=== PATIENT | male | born 1985 | race Caucasian/White ===

== ENCOUNTER 2018-01-05 18:02 | Emergency (ER) | payer MEDICAID ==
[~2018-01-05] VITALS: Ht 185.4 cm; Wt 107.0 kg
[~2018-01-05 18:02] MED LIST: ANTI10DR6 EACH EAR; BLEOS OP; CLIN300C85 PO; CLOT15CR5 TP; CYCL-1 PO; FLOOS OT; IBUP-1051 PO; IBUP-1984 PO; IBUP-1986 PO; NAPR-56 PO; NO HOME; PENI500T2 PO; PHEN-873 PO; PRED20TA PO; PSEU-259 PO
[2018-01-05 18:08] VITALS: BP 142/87
[2018-01-05] MEDS ORDERED: cephalexin 250mg capsule PO ONE (18:35)
[2018-01-05] MEDS ORDERED: DOXY100C43 PO (18:35)
[2018-01-05] MEDS ORDERED: sulfamethoxazole/trimethoprim DS (800/160mg) tablet PO ONE (18:35)
== END 2018-01-05 18:59 | disposition home or self-care (01) ==
LOC: ER 18:03
DX: L02.416 Cutaneous abscess of left lower limb (principal); K59.00 Constipation, unspecified; F17.210 Nicotine dependence, cigarettes, uncomplicated; Z56.0 Unemployment, unspecified; Z72.89 Other problems related to lifestyle; Z88.8 Allergy status to other drugs, medicaments and biological substances; Z98.890 Other specified postprocedural states; Z88.0 Allergy status to penicillin; Z88.1 Allergy status to other antibiotic agents; Z88.6 Allergy status to analgesic agent
CPT/HCPCS: 99283

== ENCOUNTER 2018-01-14 11:21 | Emergency (ER) | payer MEDICAID ==
[~2018-01-14] VITALS: Ht 185.4 cm; Wt 111.7 kg
[~2018-01-14 11:21] MED LIST changes: +DOXY100C43 PO; +PHEN-786 PO; -PHEN-873 PO
[2018-01-14 11:30] VITALS: BP 119/71
[2018-01-14] MEDS ORDERED: NICO-630 TOP (12:08)
== END 2018-01-14 12:18 | disposition home or self-care (01) ==
LOC: ER 11:21
DX: F17.200 Nicotine dependence, unspecified, uncomplicated (principal); Z00.8 Encounter for other general examination; L08.9 Local infection of the skin and subcutaneous tissue, unspecified; Z86.14 Personal history of Methicillin resistant Staphylococcus aureus infection; Z98.890 Other specified postprocedural states; Z79.899 Other long term (current) drug therapy; Z56.0 Unemployment, unspecified
CPT/HCPCS: 99282

== ENCOUNTER 2018-03-05 19:37 | Emergency (ER) | payer MEDICAID ==
[~2018-03-05] VITALS: Ht 185.4 cm; Wt 113.6 kg
[~2018-03-05 19:37] MED LIST changes: -DOXY100C43 PO
[2018-03-05 20:09] VITALS: BP 124/72
[2018-03-05] MEDS ORDERED: acetaminophen 325mg tablet PO ONE (20:15)
[2018-03-05] MEDS ORDERED: ibuprofen tablet 400 MG TABLET PO ONE (22:05)
[2018-03-05] MEDS ORDERED: penicillin G benzathine 1.2 million unit/2ml syringe IM ONE (22:05)
== END 2018-03-05 22:40 | disposition home or self-care (01) ==
LOC: ER 19:37
DX: J02.0 Streptococcal pharyngitis (principal); Z56.0 Unemployment, unspecified; Z98.890 Other specified postprocedural states; Z86.14 Personal history of Methicillin resistant Staphylococcus aureus infection; Z79.899 Other long term (current) drug therapy
CPT/HCPCS: 87880; 96372; 99283; J0561; 99284

== ENCOUNTER 2018-12-23 08:56 | Emergency (ER) | payer MEDICAID ==
[~2018-12-23] VITALS: Ht 185.4 cm; Wt 118.2 kg
[~2018-12-23 08:56] MED LIST changes: +CLIN-96 PO; -CLIN300C85 PO
[2018-12-23 09:17] VITALS: BP 121/80
[2018-12-23] MEDS ORDERED: AMOX-422 PO (09:24)
== END 2018-12-23 09:41 | disposition home or self-care (01) ==
LOC: ER 08:57
DX: J02.0 Streptococcal pharyngitis (principal); B95.5 Unspecified streptococcus as the cause of diseases classified elsewhere; Z86.14 Personal history of Methicillin resistant Staphylococcus aureus infection; Z98.890 Other specified postprocedural states; Z56.0 Unemployment, unspecified; Z79.899 Other long term (current) drug therapy
CPT/HCPCS: 99283

== ENCOUNTER 2019-03-03 10:07 | Emergency (ER) | payer MEDICAID ==
[~2019-03-03] VITALS: Ht 185.4 cm; Wt 112.7 kg
[2019-03-03 11:34] VITALS: BP 147/118
== END 2019-03-03 11:36 | disposition home or self-care (01) ==
LOC: ER 10:08
DX: F11.10 Opioid abuse, uncomplicated (principal); F15.10 Other stimulant abuse, uncomplicated; Z86.14 Personal history of Methicillin resistant Staphylococcus aureus infection; Z98.890 Other specified postprocedural states; Z56.0 Unemployment, unspecified; Z79.899 Other long term (current) drug therapy
CPT/HCPCS: 99281

== ENCOUNTER 2019-08-14 21:11 | Emergency (ER) | payer MEDICAID ==
[~2019-08-14] VITALS: Ht 185.4 cm; Wt 127.3 kg
[~2019-08-14 21:11] MED LIST changes: -CLIN-96 PO; +CLIN-97 PO
[2019-08-14 21:12] VITALS: BP 137/89
[2019-08-14] MEDS ORDERED: BENZ-16 PO (21:29)
== END 2019-08-14 21:39 | disposition home or self-care (01) ==
LOC: ER 21:11
DX: J06.9 Acute upper respiratory infection, unspecified (principal); F15.90 Other stimulant use, unspecified, uncomplicated; F11.90 Opioid use, unspecified, uncomplicated; Z86.14 Personal history of Methicillin resistant Staphylococcus aureus infection; Z98.890 Other specified postprocedural states; Z56.0 Unemployment, unspecified; Z79.899 Other long term (current) drug therapy
CPT/HCPCS: 99283

== ENCOUNTER 2019-09-04 17:04 | Emergency (ER) | payer MEDICAID ==
[~2019-09-04] VITALS: Ht 185.4 cm; Wt 121.0 kg
[2019-09-04 17:11] VITALS: BP 129/85
[2019-09-04] MEDS ORDERED: CEPH250T PO (17:54)
== END 2019-09-04 18:02 | disposition home or self-care (01) ==
LOC: ER 17:05
DX: H04.302 Unspecified dacryocystitis of left lacrimal passage (principal); F15.90 Other stimulant use, unspecified, uncomplicated; F11.90 Opioid use, unspecified, uncomplicated; Z56.0 Unemployment, unspecified; Z79.2 Long term (current) use of antibiotics; Z79.899 Other long term (current) drug therapy; Z86.14 Personal history of Methicillin resistant Staphylococcus aureus infection; Z72.89 Other problems related to lifestyle
CPT/HCPCS: 99283

== ENCOUNTER 2020-05-16 16:14 | Emergency (ER) | payer MEDICAID ==
[~2020-05-16] VITALS: Ht 185.4 cm; Wt 122.7 kg
[~2020-05-16 16:14] MED LIST changes: +CEPH250T PO; +CLOT15CR35 TP; -CLOT15CR5 TP
== END 2020-05-16 18:09 | disposition home or self-care (01) ==
LOC: ER 18:04
DX: J06.9 Acute upper respiratory infection, unspecified (principal); R05 Cough; R50.9 Fever, unspecified; Z20.828 Contact with and (suspected) exposure to other viral communicable diseases; F15.90 Other stimulant use, unspecified, uncomplicated; F11.90 Opioid use, unspecified, uncomplicated; Z86.14 Personal history of Methicillin resistant Staphylococcus aureus infection; Z98.890 Other specified postprocedural states; Z72.89 Other problems related to lifestyle; Z56.0 Unemployment, unspecified; Z79.2 Long term (current) use of antibiotics; Z88.0 Allergy status to penicillin; Z88.8 Allergy status to other drugs, medicaments and biological substances
CPT/HCPCS: 36415; 87635; 99283

== ENCOUNTER 2021-03-09 15:11 | Emergency (ER) | payer MEDICAID ==
[~2021-03-09 15:11] MED LIST changes: -CEPH250T PO
== END 2021-03-09 17:49 | disposition left against medical advice (07) ==
LOC: ER 15:11
DX: H66.90 Otitis media, unspecified, unspecified ear (principal); Z53.21 Procedure and treatment not carried out due to patient leaving prior to being seen by health care provider

== ENCOUNTER 2021-04-22 22:28 | Emergency (ER) | payer MEDICAID ==
[~2021-04-22] VITALS: Ht 185.4 cm; Wt 77.3 kg
[2021-04-22] MEDS ORDERED: dexamethasone sod phosphate 10mg/ml inj IV STA (22:56)
[2021-04-22] MEDS ORDERED: ketorolac trometh. 30mg/ml inj. IV ONE (23:00)
[2021-04-22] MEDS ORDERED: normal saline 1000ML IV soln IVB ONE (23:00)
[2021-04-22] MEDS ORDERED: acetaminophen 325mg tablet PO ONE (23:00)
[2021-04-22] MEDS ORDERED: CefTRIAXone/D5W-Rocephin 1gm 50 ML IV ONE (23:00)
[2021-04-22] MEDS ORDERED: ONDA4TAB6 PO (23:21)
[2021-04-22] MEDS ORDERED: LIDO20SO16 PO (23:21)
[2021-04-22] MEDS ORDERED: NAPR-56 PO (23:21)
[2021-04-22] MEDS ORDERED: AZIT500T PO (23:21)
[2021-04-22] MEDS ORDERED: METH4TAB3 PO (23:21)
[2021-04-23 02:27] VITALS: BP 117/77
== END 2021-04-23 02:30 | disposition home or self-care (01) ==
LOC: ER 22:28
DX: J02.9 Acute pharyngitis, unspecified (principal); B34.9 Viral infection, unspecified; E86.0 Dehydration; F15.10 Other stimulant abuse, uncomplicated; F11.10 Opioid abuse, uncomplicated; Z56.0 Unemployment, unspecified; Z20.822 Contact with and (suspected) exposure to COVID-19
CPT/HCPCS: 87635; 96365; 96375; 99284; C9803; J0696; J1100; J1885; J7030

== ENCOUNTER 2021-07-13 11:19 | Emergency (ER) | payer MEDICAID ==
[~2021-07-13] VITALS: Ht 185.4 cm; Wt 85.9 kg
[~2021-07-13 11:19] MED LIST changes: +LIDO20SO16 PO; +METH4TAB3 PO; +ONDA4TAB6 PO
[2021-07-13] MEDS ORDERED: normal saline 1000ML IV soln IV ONE ×2 (11:40)
[2021-07-13 12:03] LABS: BASOPHILS % (AUTO) 0.2 % (0-1); EOSINOPHILS % (AUTO) 0 % (0-6); HEMATOCRIT 44.2 % (42.0-52.0); HEMOGLOBIN 14.2 g/dl (14.0-17.9); LYMPHOCYTES # (AUTO) 0.9 X10'3 (1.1-4.8); LYMPHOCYTES % (AUTO) 5.5 % (21-51); MEAN CORPUSCULAR HEMOGLOBIN 26.1 PG (27.0-31.0); MEAN CORPUSCULAR HGB CONC 32.1 g/dL (33.0-36.5); MEAN CORPUSCULAR VOLUME 81.3 FL (78-98); MEAN PLATELET VOLUME 7.7 FL (7.4-10.4); MONOCYTES # (AUTO) 1.2 X10'3 (0-0.9); MONOCYTES % (AUTO) 7.3 % (2-12); PLATELET COUNT 212 X10'3 (140-440); RED BLOOD COUNT 5.44 X10'6 (4.70-6.10); RED CELL DISTRIBUTION WIDTH 14.3 % (11.5-14.5); WHITE BLOOD COUNT 16.1 X10'3 (4.5-11.0)
[2021-07-13 12:31] LABS: ALANINE AMINOTRANSFERASE 23 U/L (12-78); ALBUMIN 3.5 G/DL (3.4-5.0); ALBUMIN/GLOBULIN RATIO 0.8 (1.1-1.5); ALKALINE PHOSPHATASE 100 IU/L (46-116); ANION GAP 9 (8-16); ASPARTATE AMINO TRANSFERASE 12 U/L (10-37); BILIRUBIN,TOTAL 0.4 MG/DL (0.1-1.0); BLOOD UREA NITROGEN 18 MG/DL (7-18); BUN/CREATININE RATIO 13.2 (5.4-32.0); CALCIUM 9.1 MG/DL (8.5-10.1); CHLORIDE 102 MMOL/L (99-107); CREATININE 1.36 MG/DL (0.60-1.10); GLUCOSE 145 MG/DL (70-104); MAGNESIUM 2.1 MG/DL (1.5-2.4); POTASSIUM 3.7 MMOL/L (3.5-5.1); SODIUM 137 MMOL/L (135-145); TOTAL CARBON DIOXIDE 26.1 MMOL/L (24-32); TOTAL PROTEIN 7.8 G/DL (6.4-8.2); eGFR 60 ML/MIN
[2021-07-13] MEDS ORDERED: penicillin V potassium 500mg tablet PO ONE (14:10)
[2021-07-13] MEDS ORDERED: PENI500T2 PO (14:15)
[2021-07-13] MEDS ORDERED: acetaminophen 325mg tablet PO ONE (14:25)
[2021-07-13 14:50] VITALS: BP 106/74
== END 2021-07-13 14:52 | disposition home or self-care (01) ==
LOC: ER 11:20
DX: J02.0 Streptococcal pharyngitis (principal); Z20.822 Contact with and (suspected) exposure to COVID-19; R13.10 Dysphagia, unspecified; R50.9 Fever, unspecified; R11.10 Vomiting, unspecified; F15.90 Other stimulant use, unspecified, uncomplicated; F11.90 Opioid use, unspecified, uncomplicated; Z86.14 Personal history of Methicillin resistant Staphylococcus aureus infection; Z98.890 Other specified postprocedural states; Z72.89 Other problems related to lifestyle; Z56.0 Unemployment, unspecified; Z79.2 Long term (current) use of antibiotics; Z79.899 Other long term (current) drug therapy
CPT/HCPCS: 36415; 71045; 80053; 83605; 83735; 84145; 85025; 87040; 87635; 87880; 96360; 96361; 99285; C9803; J7030

== ENCOUNTER 2021-12-12 12:13 | Emergency (ER) | payer MEDICAID ==
[~2021-12-12] VITALS: Ht 182.9 cm; Wt 100.0 kg
[2021-12-12 12:32] VITALS: BP 115/85
[2021-12-12] MEDS ORDERED: SULF1TAB49 PO (12:51)
== END 2021-12-12 13:03 | disposition home or self-care (01) ==
LOC: ER 12:13
DX: R22.32 Localized swelling, mass and lump, left upper limb (principal); F15.10 Other stimulant abuse, uncomplicated; F11.10 Opioid abuse, uncomplicated; Z86.14 Personal history of Methicillin resistant Staphylococcus aureus infection; Z56.0 Unemployment, unspecified; Z79.899 Other long term (current) drug therapy; Z79.1 Long term (current) use of non-steroidal anti-inflammatories (NSAID)
CPT/HCPCS: 99283

== ENCOUNTER 2023-04-24 02:18 | Emergency (ER) | payer MEDICAID ==
[~2023-04-24] VITALS: Ht 185.4 cm; Wt 109.0 kg
[2023-04-24 02:22] VITALS: BP 146/95; PULSE 126; RESP 24; TEMP 99.5; O2SAT 100
== END 2023-04-24 04:29 | disposition left against medical advice (07) ==
LOC: ER 02:19
DX: R51.9 Headache, unspecified (principal); Z53.21 Procedure and treatment not carried out due to patient leaving prior to being seen by health care provider
CPT/HCPCS: 99281

== ENCOUNTER 2023-06-29 09:58 | Emergency (ER) | payer MEDICAID ==
[~2023-06-29] VITALS: Ht 185.4 cm; Wt 99.9 kg
[2023-06-29 11:08] LABS: BASOPHILS # (AUTO) 0.1 X10'3 (0-0.2); EOSINOPHILS # (AUTO) 0.1 X10'3 (0-0.9); EOSINOPHILS % (AUTO) 1.9 % (0-6); HEMATOCRIT 40.9 % (42.0-52.0); HEMOGLOBIN 13.3 g/dl (14.0-17.9); LYMPHOCYTES # (AUTO) 1.5 X10'3 (1.1-4.8); LYMPHOCYTES % (AUTO) 27.6 % (21-51); MEAN CORPUSCULAR HEMOGLOBIN 25.9 PG (27.0-31.0); MEAN CORPUSCULAR HGB CONC 32.4 g/dL (33.0-36.5); MEAN CORPUSCULAR VOLUME 79.8 FL (78-98); MEAN PLATELET VOLUME 6.8 FL (7.4-10.4); MONOCYTES # (AUTO) 0.4 X10'3 (0-0.9); MONOCYTES % (AUTO) 6.8 % (2-12); NEUTROPHILS # (AUTO) 3.5 X10'3 (1.8-7.7); NEUTROPHILS % (AUTO) 62.7 % (42-75); PLATELET COUNT 238 X10'3 (140-440); RED BLOOD COUNT 5.13 X10'6 (4.70-6.10); RED CELL DISTRIBUTION WIDTH 14.5 % (11.5-14.5); WHITE BLOOD COUNT 5.5 X10'3 (4.5-11.0)
[2023-06-29 11:32] LABS: ALBUMIN 3.9 G/DL (3.4-5.0); ANION GAP 12 (8-16); BLOOD UREA NITROGEN 18 MG/DL (7-18); BUN/CREATININE RATIO 22.2 (10.0-20.0); CALCIUM 7.8 MG/DL (8.5-10.1); CHLORIDE 105 MMOL/L (99-107); CREATININE 0.81 MG/DL (0.60-1.10); ETHANOL < 10 MG/DL (<10); GLUCOSE 99 MG/DL (70-104); POTASSIUM 4.2 MMOL/L (3.5-5.1); SODIUM 142 MMOL/L (135-145); THYROID STIMULATING HORMONE 0.98 ulU/ml (0.34-4.50); TOTAL CARBON DIOXIDE 25.2 MMOL/L (24-32); eCRCL 142 ML/MIN; eGFR > 90 ML/MIN
[2023-06-29 12:05] LABS: URINE AMPHETAMINE SCREEN POSITIVE (Neg); URINE BARBITUATE SCREEN NEGATIVE (Neg); URINE BENZODIAZEPINES SCREEN NEGATIVE (Neg); URINE CANNABINOID SCREEN NEGATIVE (Neg); URINE COCAINE SCREEN NEGATIVE (Neg); URINE METHADONE SCREEN NEGATIVE (Neg); URINE OPIATE SCREEN NEGATIVE (Neg); URINE PHENCYCLIDINE SCREEN NEGATIVE (Neg)
[2023-06-29 12:31] LABS: BILIRUBIN,URINE NEGATIVE (Neg); CLARITY,URINE CLEAR (Clear); COLOR,URINE YELLOW (Yellow); GLUCOSE, URINE NEGATIVE (Neg); KETONES,URINE NEGATIVE (Neg); LEUKOCYTE ESTERASE ,URINE NEGATIVE (Neg); NITRITES, URINE NEGATIVE (Neg); OCCULT BLOOD,URINE NEGATIVE (Neg); PH,URINE 7.5 (4.8-8.0); PROTEIN,URINE NEGATIVE (Neg); UROBILINOGEN,URINE 0.2 E.U/dL (0.2-1.0)
[2023-06-29 12:36] LABS: UA COLLECTION TYPE CLN CATCH MIDSTREAM
[2023-06-29] MEDS ORDERED: LISI2.5T14 PO (13:19)
[2023-06-29] MEDS ORDERED: SPIR25TA5 PO (13:19)
[2023-06-29] MEDS ORDERED: CARV12.549 PO (13:19)
[2023-06-29] MEDS: carVEDilol 12.5mg tablet PO SCH (20:12)
[2023-06-30 06:09] VITALS: BP_DIAS 45; TEMP 96.8; O2SAT 97
[2023-06-30] MEDS: spironolactone 25 MG tablet PO SCH (08:45)
[2023-06-30 08:46] VITALS: BP_SYST 111; PULSE 63
[2023-06-30] MEDS: lisinopril 2.5mg tablet PO SCH (08:46)
[2023-06-30 09:42] VITALS: RESP 16
== END 2023-06-30 13:25 | disposition home or self-care (01) ==
LOC: ER 09:59
DX: F19.10 Other psychoactive substance abuse, uncomplicated (principal); Z20.822 Contact with and (suspected) exposure to COVID-19; F15.90 Other stimulant use, unspecified, uncomplicated; Z79.899 Other long term (current) drug therapy
CPT/HCPCS: 36415; 80048; 80305; 80320; 81003; 84443; 85025; 87811; 99284

== ENCOUNTER 2023-07-11 13:32 | Emergency (ER) | payer MEDICAID ==
[~2023-07-11] VITALS: Ht 180.3 cm; Wt 98.6 kg
[~2023-07-11 13:32] MED LIST changes: -ANTI10DR6 EACH EAR; -BLEOS OP; +CARV12.549 PO; -CLIN-97 PO; -CLOT15CR35 TP; -CYCL-1 PO; -FLOOS OT; -IBUP-1051 PO; -IBUP-1984 PO; -IBUP-1986 PO; -LIDO20SO16 PO; +LISI2.5T14 PO; -METH4TAB3 PO; -NAPR-56 PO; -NO HOME; -ONDA4TAB6 PO; -PENI500T2 PO; -PHEN-786 PO; -PRED20TA PO; -PSEU-259 PO; +SPIR25TA5 PO
[2023-07-11 13:37] VITALS: BP 125/93; PULSE 98; RESP 16; TEMP 98; O2SAT 100
== END 2023-07-11 19:18 | disposition left against medical advice (07) ==
LOC: ER 13:32
DX: R44.0 Auditory hallucinations (principal); Z53.21 Procedure and treatment not carried out due to patient leaving prior to being seen by health care provider
CPT/HCPCS: 99281

== ENCOUNTER 2023-08-02 00:32 | Emergency (ER) | payer MEDICAID ==
[~2023-08-02] VITALS: Ht 180.3 cm; Wt 104.7 kg
[2023-08-02 00:46] VITALS: BP 146/103; PULSE 94; RESP 16; TEMP 97.8; O2SAT 95
== END 2023-08-02 05:25 | disposition left against medical advice (07) ==
LOC: ER 00:33
DX: F29 Unspecified psychosis not due to a substance or known physiological condition (principal); Z53.21 Procedure and treatment not carried out due to patient leaving prior to being seen by health care provider
CPT/HCPCS: 99281

== ENCOUNTER 2023-08-20 04:01 | Emergency (ER) | payer MEDICAID | END 2023-08-20 05:13 | disposition left against medical advice (07) | LOC: ER 04:02 | DX: Z00.00 Encounter for general adult medical examination without abnormal findings (principal); Z53.21 Procedure and treatment not carried out due to patient leaving prior to being seen by health care provider | CPT/HCPCS: 99281 ==

== ENCOUNTER 2024-03-10 23:01 | Emergency (ER) | payer MEDICAID ==
[~2024-03-10] VITALS: Ht 185.4 cm; Wt 104.5 kg
[2024-03-11] MEDS: ondansetron/PF 4mg/2ml inj IV ONE (00:28)
[2024-03-11] MEDS: normal saline 1000ml 1,000 ML IV ONE (00:29)
[2024-03-11 01:35] VITALS: BP 140/92; PULSE 86; RESP 16; TEMP 98.6; O2SAT 99
== END 2024-03-11 01:37 | disposition home or self-care (01) ==
LOC: ER 23:01
DX: R11.2 Nausea with vomiting, unspecified (principal); F15.90 Other stimulant use, unspecified, uncomplicated; F11.90 Opioid use, unspecified, uncomplicated; Z79.899 Other long term (current) drug therapy; Z98.890 Other specified postprocedural states; Z56.0 Unemployment, unspecified
CPT/HCPCS: 96361; 96374; 99283; J2405; J7030

== ENCOUNTER 2024-04-09 18:57 | Emergency (ER) | payer MEDICAID ==
[~2024-04-09] VITALS: Ht 185.4 cm; Wt 104.3 kg
[2024-04-09 19:59] LABS: BASOPHILS # (AUTO) 0.1 X10'3 (0-0.2); BASOPHILS % (AUTO) 0.8 % (0-1); EOSINOPHILS # (AUTO) 0.2 X10'3 (0-0.9); EOSINOPHILS % (AUTO) 2.6 % (0-6); HEMATOCRIT 43.5 % (42.0-52.0); LYMPHOCYTES # (AUTO) 1.6 X10'3 (1.1-4.8); LYMPHOCYTES % (AUTO) 22.4 % (21-51); MEAN CORPUSCULAR HEMOGLOBIN 26.3 PG (27.0-31.0); MEAN CORPUSCULAR HGB CONC 32.3 g/dL (33.0-36.5); MEAN CORPUSCULAR VOLUME 81.5 FL (78-98); MEAN PLATELET VOLUME 6.8 FL (7.4-10.4); MONOCYTES # (AUTO) 0.5 X10'3 (0-0.9); NEUTROPHILS # (AUTO) 4.7 X10'3 (1.8-7.7); NEUTROPHILS % (AUTO) 67.2 % (42-75); PLATELET COUNT 280 X10'3 (140-440); RED BLOOD COUNT 5.33 X10'6 (4.70-6.10); RED CELL DISTRIBUTION WIDTH 14.1 % (11.5-14.5)
[2024-04-09 20:20] LABS: ALBUMIN 3.6 G/DL (3.4-5.0); ANION GAP 5 (8-16); BLOOD UREA NITROGEN 15 MG/DL (7-18); BUN/CREATININE RATIO 13.8 (10.0-20.0); CHLORIDE 101 MMOL/L (99-107); CREATININE 1.09 MG/DL (0.60-1.10); ETHANOL < 10 MG/DL (<10); GLUCOSE 111 MG/DL (70-104); POTASSIUM 4.1 MMOL/L (3.5-5.1); SALICYLATE 1.2 MG/DL (4.0-20.0); SODIUM 138 MMOL/L (135-145); TOTAL CARBON DIOXIDE 32.2 MMOL/L (24-32); eCRCL 105 ML/MIN; eGFR 76 ML/MIN
[2024-04-09] MEDS: ondansetron 4mg rapidly disintigrating tab PO ONE (20:29)
[2024-04-09] MEDS: mag hydrox/Alum hydrox/simeth 30ml oral suspension PO ONE (20:30)
[2024-04-09] MEDS: LIDOcaine 2% Viscous 15ml cup MM PRN (20:30)
[2024-04-09 20:40] LABS: ACETAMINOPHEN < 2.0 UG/ML (10-30)
[2024-04-09 21:23] LABS: BILIRUBIN,URINE NEGATIVE (Neg); CLARITY,URINE CLEAR (Clear); COLOR,URINE YELLOW (Yellow); GLUCOSE, URINE NEGATIVE (Neg); KETONES,URINE NEGATIVE (Neg); LEUKOCYTE ESTERASE ,URINE NEGATIVE (Neg); NITRITES, URINE NEGATIVE (Neg); OCCULT BLOOD,URINE NEGATIVE (Neg); PROTEIN,URINE NEGATIVE (Neg); UROBILINOGEN,URINE 0.2 E.U/dL (0.2-1.0)
[2024-04-09 21:28] LABS: UA COLLECTION TYPE CLN CATCH MIDSTREAM
[2024-04-09 21:44] LABS: URINE AMPHETAMINE SCREEN POSITIVE (Neg); URINE BARBITUATE SCREEN NEGATIVE (Neg); URINE BENZODIAZEPINES SCREEN NEGATIVE (Neg); URINE CANNABINOID SCREEN NEGATIVE (Neg); URINE COCAINE SCREEN NEGATIVE (Neg); URINE METHADONE SCREEN NEGATIVE (Neg); URINE OPIATE SCREEN NEGATIVE (Neg); URINE PHENCYCLIDINE SCREEN NEGATIVE (Neg)
[2024-04-10] MEDS: OLANZapine 2.5MG tablet PO ONE (03:00)
[2024-04-10] MEDS: temazepam 15mg capsule PO ONE (15:48)
[2024-04-10] MEDS: LORazepam 1 MG tablet PO ONE (19:33)
[2024-04-10] MEDS: haloperidol 5mg tablet PO ONE (19:34)
[2024-04-10] MEDS: diphenhydrAMINE 25mg capsule PO ONE (19:34)
[2024-04-11 11:23] VITALS: BP 119/84; PULSE 98; RESP 18; TEMP 98.1; O2SAT 98
== END 2024-04-11 11:35 | disposition home or self-care (01) ==
LOC: ER 18:57
DX: R10.13 Epigastric pain (principal); R11.10 Vomiting, unspecified; F22 Delusional disorders; F15.10 Other stimulant abuse, uncomplicated; Z88.8 Allergy status to other drugs, medicaments and biological substances; Z20.822 Contact with and (suspected) exposure to COVID-19
CPT/HCPCS: 36415; 80048; 80305; 80320; 80329; 81003; 85025; 87811; 99285; Q0163

== ENCOUNTER 2024-04-19 09:42 | Emergency (ER) | payer MEDICAID ==
[~2024-04-19] VITALS: Ht 182.9 cm; Wt 107.4 kg
[2024-04-19 09:50] VITALS: BP 116/72; PULSE 116; RESP 18; O2SAT 100
[2024-04-19 10:38] LABS: BILIRUBIN,URINE NEGATIVE (Neg); CLARITY,URINE CLEAR (Clear); COLOR,URINE YELLOW (Yellow); GLUCOSE, URINE NEGATIVE (Neg); KETONES,URINE TRACE mg/dl (Neg); LEUKOCYTE ESTERASE ,URINE NEGATIVE (Neg); NITRITES, URINE NEGATIVE (Neg); OCCULT BLOOD,URINE NEGATIVE (Neg); PROTEIN,URINE NEGATIVE (Neg); UROBILINOGEN,URINE 0.2 E.U/dL (0.2-1.0)
[2024-04-19 10:39] LABS: UA COLLECTION TYPE CLN CATCH MIDSTREAM
[2024-04-19 10:45] LABS: URINE AMPHETAMINE SCREEN POSITIVE (Neg); URINE BARBITUATE SCREEN NEGATIVE (Neg); URINE BENZODIAZEPINES SCREEN NEGATIVE (Neg); URINE CANNABINOID SCREEN NEGATIVE (Neg); URINE COCAINE SCREEN NEGATIVE (Neg); URINE METHADONE SCREEN NEGATIVE (Neg); URINE OPIATE SCREEN NEGATIVE (Neg); URINE PHENCYCLIDINE SCREEN NEGATIVE (Neg)
[2024-04-19 10:45] LABS: BASOPHILS % (AUTO) 0.7 % (0-1); EOSINOPHILS # (AUTO) 0.1 X10'3 (0-0.9); EOSINOPHILS % (AUTO) 1.3 % (0-6); HEMATOCRIT 43.5 % (42.0-52.0); HEMOGLOBIN 14.1 g/dl (14.0-17.9); LYMPHOCYTES # (AUTO) 1.3 X10'3 (1.1-4.8); LYMPHOCYTES % (AUTO) 20.4 % (21-51); MEAN CORPUSCULAR HEMOGLOBIN 26.3 PG (27.0-31.0); MEAN CORPUSCULAR HGB CONC 32.3 g/dL (33.0-36.5); MEAN CORPUSCULAR VOLUME 81.3 FL (78-98); MONOCYTES # (AUTO) 0.3 X10'3 (0-0.9); MONOCYTES % (AUTO) 5.2 % (2-12); NEUTROPHILS # (AUTO) 4.5 X10'3 (1.8-7.7); NEUTROPHILS % (AUTO) 72.4 % (42-75); PLATELET COUNT 290 X10'3 (140-440); RED BLOOD COUNT 5.35 X10'6 (4.70-6.10); WHITE BLOOD COUNT 6.2 X10'3 (4.5-11.0)
[2024-04-19 11:07] LABS: ALBUMIN 3.7 G/DL (3.4-5.0); ANION GAP 7 (8-16); BLOOD UREA NITROGEN 16 MG/DL (7-18); CALCIUM 9.3 MG/DL (8.5-10.1); CHLORIDE 104 MMOL/L (99-107); CREATININE 0.94 MG/DL (0.60-1.10); ETHANOL < 10 MG/DL (<10); GLUCOSE 117 MG/DL (70-104); POTASSIUM 4.2 MMOL/L (3.5-5.1); SODIUM 139 MMOL/L (135-145); THYROID STIMULATING HORMONE 0.81 ulU/ml (0.34-4.50); TOTAL CARBON DIOXIDE 27.7 MMOL/L (24-32); eCRCL 118 ML/MIN; eGFR 90 ML/MIN
[2024-04-19 13:11] VITALS: TEMP 98.7
[2024-04-21] MEDS ORDERED: OLAN10TA3 PO (13:26)
== END 2024-04-19 13:12 | disposition home or self-care (01) ==
LOC: ER 09:43
DX: R45.851 Suicidal ideations (principal); F20.9 Schizophrenia, unspecified; F29 Unspecified psychosis not due to a substance or known physiological condition; F15.90 Other stimulant use, unspecified, uncomplicated; Z79.899 Other long term (current) drug therapy; Z20.822 Contact with and (suspected) exposure to COVID-19
CPT/HCPCS: 36415; 80048; 80305; 80320; 81003; 84443; 85025; 87811; 99284

== ENCOUNTER 2024-07-17 11:03 | Emergency (ER) | payer MEDICAID ==
[~2024-07-17] VITALS: Ht 182.9 cm; Wt 104.0 kg
[~2024-07-17 11:03] MED LIST changes: +OLAN10TA3 PO
[2024-07-17 11:05] VITALS: BP 140/93; PULSE 97; TEMP 98.6; O2SAT 99
[2024-07-17] MEDS ORDERED: OLANZapine 2.5MG tablet PO SCH (11:15)
[2024-07-17] MEDS ORDERED: ondansetron 4mg rapidly disintigrating tab PO ONE (11:20)
[2024-07-17 11:37] LABS: BASOPHILS # (AUTO) 0.1 X10'3 (0-0.2); BASOPHILS % (AUTO) 1.1 % (0-1); EOSINOPHILS # (AUTO) 0.1 X10'3 (0-0.9); EOSINOPHILS % (AUTO) 1.2 % (0-6); HEMATOCRIT 42.6 % (42.0-52.0); HEMOGLOBIN 13.8 g/dl (14.0-17.9); LYMPHOCYTES # (AUTO) 1.5 X10'3 (1.1-4.8); LYMPHOCYTES % (AUTO) 21.5 % (21-51); MEAN CORPUSCULAR HEMOGLOBIN 26.2 PG (27.0-31.0); MEAN CORPUSCULAR HGB CONC 32.5 g/dL (33.0-36.5); MEAN CORPUSCULAR VOLUME 80.7 FL (78-98); MEAN PLATELET VOLUME 6.8 FL (7.4-10.4); MONOCYTES # (AUTO) 0.4 X10'3 (0-0.9); MONOCYTES % (AUTO) 5.7 % (2-12); NEUTROPHILS # (AUTO) 4.9 X10'3 (1.8-7.7); NEUTROPHILS % (AUTO) 70.5 % (42-75); PLATELET COUNT 242 X10'3 (140-440); RED BLOOD COUNT 5.28 X10'6 (4.70-6.10); RED CELL DISTRIBUTION WIDTH 13.8 % (11.5-14.5); WHITE BLOOD COUNT 6.9 X10'3 (4.5-11.0)
[2024-07-17] MEDS: ondansetron/PF 4mg/2ml inj IV ONE (11:39)
[2024-07-17] MEDS: LORazepam 2 mg/ml vial IV ONE (11:40)
[2024-07-17] MEDS: normal saline 1000ML IV soln IVB ONE (11:40)
[2024-07-17] MEDS: OLANZapine **IM** 10 mg inj. IM ONE (11:40)
[2024-07-17 11:48] LABS: ALBUMIN 3.8 G/DL (3.4-5.0); ANION GAP 5 (8-16); BLOOD UREA NITROGEN 22 MG/DL (7-18); BUN/CREATININE RATIO 24.7 (10.0-20.0); CALCIUM 9.1 MG/DL (8.5-10.1); CHLORIDE 102 MMOL/L (99-107); CREATININE 0.89 MG/DL (0.60-1.10); GLUCOSE 99 MG/DL (70-104); POTASSIUM 4.1 MMOL/L (3.5-5.1); SODIUM 140 MMOL/L (135-145); TOTAL CARBON DIOXIDE 32.8 MMOL/L (24-32); eCRCL 125 ML/MIN; eGFR > 90 ML/MIN
[2024-07-17 11:53] VITALS: RESP 16
[2024-07-17 11:56] LABS: ETHANOL < 10 MG/DL (<10)
[2024-07-17] MEDS ORDERED: PRAZ1CAP5 (11:59)
[2024-07-17] MEDS ORDERED: PALI6TAB6 (12:00)
[2024-07-17] MEDS ORDERED: RISP-31 PO (12:00)
[2024-07-17] MEDS ORDERED: HYDR-3686 PO (12:00)
[2024-07-17 12:07] LABS: BILIRUBIN,URINE NEGATIVE (Neg); CLARITY,URINE CLEAR (Clear); COLOR,URINE YELLOW (Yellow); GLUCOSE, URINE NEGATIVE (Neg); KETONES,URINE NEGATIVE (Neg); LEUKOCYTE ESTERASE ,URINE NEGATIVE (Neg); NITRITES, URINE NEGATIVE (Neg); OCCULT BLOOD,URINE NEGATIVE (Neg); PROTEIN,URINE NEGATIVE (Neg); UROBILINOGEN,URINE 0.2 E.U/dL (0.2-1.0)
[2024-07-17 12:10] LABS: UA COLLECTION TYPE NON-SPECIFIED
[2024-07-17 12:26] LABS: URINE AMPHETAMINE SCREEN POSITIVE (Neg); URINE BARBITUATE SCREEN NEGATIVE (Neg); URINE BENZODIAZEPINES SCREEN NEGATIVE (Neg); URINE CANNABINOID SCREEN NEGATIVE (Neg); URINE COCAINE SCREEN NEGATIVE (Neg); URINE METHADONE SCREEN NEGATIVE (Neg); URINE OPIATE SCREEN NEGATIVE (Neg); URINE PHENCYCLIDINE SCREEN NEGATIVE (Neg)
[2024-07-17 12:36] LABS: LIPASE 22 U/L (16-77)
[2024-07-17] MEDS ORDERED: ONDA-245 PO (12:57)
[2024-07-17] MEDS ORDERED: OLAN10TA40 PO (12:59)
== END 2024-07-17 13:36 | disposition home or self-care (01) ==
LOC: ER 11:04
DX: F20.9 Schizophrenia, unspecified (principal); K52.9 Noninfective gastroenteritis and colitis, unspecified; F15.90 Other stimulant use, unspecified, uncomplicated; F11.90 Opioid use, unspecified, uncomplicated; Z98.890 Other specified postprocedural states; Z56.0 Unemployment, unspecified; Z20.822 Contact with and (suspected) exposure to COVID-19; Z79.899 Other long term (current) drug therapy
CPT/HCPCS: 36415; 80048; 80305; 80320; 81003; 83690; 85025; 87811; 96361; 96374; 96375; 99284; J2060; J2405; J7030

== ENCOUNTER 2024-08-04 14:07 | Emergency (ER) | payer MEDICAID ==
[~2024-08-04] VITALS: Ht 185.4 cm; Wt 111.2 kg
[~2024-08-04 14:07] MED LIST changes: -CARV12.549 PO; +HYDR-3686 PO; -LISI2.5T14 PO; -OLAN10TA3 PO; +OLAN10TA40 PO; +ONDA-245 PO; +PALI6TAB6; +PRAZ1CAP5; +RISP-31 PO; -SPIR25TA5 PO
[2024-08-04 14:44] LABS: BASOPHILS # (AUTO) 0.1 X10'3 (0-0.2); EOSINOPHILS # (AUTO) 0.1 X10'3 (0-0.9); HEMATOCRIT 46.8 % (42.0-52.0); HEMOGLOBIN 14.9 g/dl (14.0-17.9); LYMPHOCYTES # (AUTO) 1.9 X10'3 (1.1-4.8); LYMPHOCYTES % (AUTO) 25.5 % (21-51); MEAN CORPUSCULAR HEMOGLOBIN 25.8 PG (27.0-31.0); MEAN CORPUSCULAR HGB CONC 31.8 g/dL (33.0-36.5); MEAN CORPUSCULAR VOLUME 81.1 FL (78-98); MEAN PLATELET VOLUME 6.9 FL (7.4-10.4); MONOCYTES # (AUTO) 0.5 X10'3 (0-0.9); MONOCYTES % (AUTO) 6.4 % (2-12); NEUTROPHILS # (AUTO) 4.7 X10'3 (1.8-7.7); NEUTROPHILS % (AUTO) 65.1 % (42-75); PLATELET COUNT 305 X10'3 (140-440); RED BLOOD COUNT 5.77 X10'6 (4.70-6.10); WHITE BLOOD COUNT 7.3 X10'3 (4.5-11.0)
[2024-08-04 15:06] LABS: ALANINE AMINOTRANSFERASE 25 U/L (12-78); ALBUMIN 3.9 G/DL (3.4-5.0); ALBUMIN/GLOBULIN RATIO 0.9 (1.1-1.5); ALKALINE PHOSPHATASE 119 IU/L (46-116); ANION GAP 9 (8-16); ASPARTATE AMINO TRANSFERASE 12 U/L (10-37); BILIRUBIN,TOTAL 0.6 MG/DL (0.1-1.0); BLOOD UREA NITROGEN 21 MG/DL (7-18); BUN/CREATININE RATIO 21.4 (10.0-20.0); CALCIUM 9.1 MG/DL (8.5-10.1); CHLORIDE 106 MMOL/L (99-107); CREATININE 0.98 MG/DL (0.60-1.10); GLUCOSE 75 MG/DL (70-104); POTASSIUM 3.8 MMOL/L (3.5-5.1); PRO BRAIN NATRIURETIC PEPTIDE 180 PG/ML (0-125); SODIUM 143 MMOL/L (135-145); TOTAL PROTEIN 8.2 G/DL (6.4-8.2); eCRCL 117 ML/MIN; eGFR 86 ML/MIN
[2024-08-04 17:06] LABS: BILIRUBIN,URINE NEGATIVE (Neg); CLARITY,URINE CLEAR (Clear); COLOR,URINE YELLOW (Yellow); GLUCOSE, URINE NEGATIVE (Neg); KETONES,URINE NEGATIVE (Neg); LEUKOCYTE ESTERASE ,URINE NEGATIVE (Neg); NITRITES, URINE NEGATIVE (Neg); OCCULT BLOOD,URINE NEGATIVE (Neg); PROTEIN,URINE NEGATIVE (Neg); UROBILINOGEN,URINE 0.2 E.U/dL (0.2-1.0)
[2024-08-04 17:08] LABS: UA COLLECTION TYPE VOIDED
[2024-08-04 17:15] LABS: URINE AMPHETAMINE SCREEN POSITIVE (Neg); URINE BARBITUATE SCREEN NEGATIVE (Neg); URINE BENZODIAZEPINES SCREEN NEGATIVE (Neg); URINE CANNABINOID SCREEN NEGATIVE (Neg); URINE COCAINE SCREEN NEGATIVE (Neg); URINE METHADONE SCREEN NEGATIVE (Neg); URINE OPIATE SCREEN NEGATIVE (Neg); URINE PHENCYCLIDINE SCREEN NEGATIVE (Neg)
[2024-08-04 18:13] VITALS: BP 111/78; PULSE 97; RESP 15; TEMP 98.4; O2SAT 96
== END 2024-08-04 18:19 | disposition home or self-care (01) ==
LOC: ER 14:08
DX: R07.9 Chest pain, unspecified (principal); R00.2 Palpitations; F15.10 Other stimulant abuse, uncomplicated; F17.200 Nicotine dependence, unspecified, uncomplicated
CPT/HCPCS: 36415; 71045; 80053; 80305; 81003; 83880; 84484; 85025; 93005; 99285

== ENCOUNTER 2025-02-13 22:49 | Emergency (ER) | payer MEDICAID ==
[~2025-02-13] VITALS: Ht 182.9 cm; Wt 103.8 kg
[~2025-02-13 22:49] MED LIST changes: +OLAN-38 PO; -OLAN10TA40 PO
[2025-02-13 23:26] VITALS: BP 108/78; PULSE 104; RESP 16; TEMP 97.6; O2SAT 97
[2025-02-13 23:58] LABS: MEAN PLATELET VOLUME 7.2 FL (7.4-10.4); RED CELL DISTRIBUTION WIDTH 13.9 % (11.5-14.5)
[2025-02-14 00:11] LABS: CREATININE 1.11 MG/DL (0.60-1.10); TOTAL CARBON DIOXIDE 26.8 MMOL/L (24-32); eCRCL 99 ML/MIN; eGFR 74 ML/MIN
[2025-02-14 00:14] LABS: LEUKOCYTE ESTERASE ,URINE NEGATIVE (Neg); NITRITES, URINE NEGATIVE (Neg); OCCULT BLOOD,URINE NEGATIVE (Neg); UA COLLECTION TYPE CLN CATCH MIDSTREAM
[2025-02-14 00:34] LABS: AMORPHOUS URATES 1+; MUCUS STRANDS FEW /LPF (Neg); SQUAMOUS EPITHELIAL CELL,UR FEW /LPF (FEW)
== END 2025-02-14 03:33 | disposition left against medical advice (07) ==
LOC: ER 22:50
DX: R10.9 Unspecified abdominal pain (principal)
CPT/HCPCS: 36415; 80053; 81001; 81003; 83690; 85025; 99281

== ENCOUNTER 2025-04-29 04:22 | Emergency (ER) | payer MEDICAID ==
[~2025-04-29] VITALS: Ht 172.7 cm; Wt 112.0 kg
[~2025-04-29 04:22] MED LIST changes: +CHLO10TA18 PO
[2025-04-29 04:43] VITALS: BP 135/65; PULSE 89; RESP 15; TEMP 98.6; O2SAT 98
--- NOTE | 2025-04-29 05:30 | Physician Documentation ---
History of Present Illness ~ General Chief Complaint: See Chief Complaint Stated Complaint: HICCUPS Time Seen by MD: 05:23 Primary Medical Doctor: Henny Morrissey History of Present Illness Initial Comments Patient presents to the emergency room with chief complaint of hiccups. He is here earlier with the same chief complaint in Thorazine was prescribed however he eloped for what he says to get a hog driver. Now he has a hog driver and he is back. Hiccups seemed to have resolved. Medication Reconciliation Allergies: Coded Allergies: No Known Allergies (Unverified , 04/29/25) Scheduled Chlorpromazine Hcl* (Thorazine*), 1 TAB PO TID Olanzapine (Olanzapine), 1 TAB PO HS Ondansetron 8mg ODT (Ondansetron Odt), 1 TAB PO Q6H Risperidone (Risperidone), 1 TAB PO BID, (Reported) Scheduled PRN Hydroxyzine Hcl* (Atarax*), 1 TAB PO TID PRN for anxiety, (Reported) Miscellaneous Medications Paliperidone (Paliperidone ER), (Reported) Prazosin Hcl (Prazosin Hcl), 1, (Reported) Past Medical History Past Medical History: *ENT*, MRSA Abscess Past Surgical History: orthopedic surgeries Other Past Surgical History: ear surgery Alcohol Use: Sober Drug Use: methamphetamine, heroin Lives with: Mother Lives In: Home Occupation: unemployed Review of Systems ROS All review of systems negative except as per HPI Physical Exam Physical Exam Vital Signs: Temperature: 98.6, Source: Temporal, Heart Rate: 89, Respiratory Rate: 15, BP: 135/65, Pulse Oximetry: 98, Weight: 112.000 Physical Exam General: Patient is sleeping, easily aroused. No hiccups Head: Normocephalic and atraumatic. Eyes: Conjunctival normal. EOMI. PERRL. ENT: Mucous membranes moist. Neck: Supple, trachea is midline. Chest: Clear to auscultation bilaterally without rales, rhonchi, or wheezes. There is no accessory muscle use or retractions. Cardiac: RRR without murmurs, gallops, or rubs. Progress Results/Orders Results/Orders Vital Signs 04/29/25 04:43 Temp 98.6 Pulse 89 Resp 15 B/P (MAP) 135/65 Pulse Ox 98 Medical Decision Making Additional information obtaine: old records Findings Patient presents to the emergency room with chief complaint of hiccups. He apparently returned to try and get his Thorazine with the hog driver however his hiccups have resolved. Explained to him that has Thorazine was prescribed if he needs medicine for his hiccups he can fill his prescribed medicine. Differentials include but are not limited to hiccups, vagus nerve irritation, diaphragmatic irritation, ACS. Differential Diagnosis h Departure Disposition: HOME / SELF CARE / HOMELESS Impression: Primary Impression: Hiccups Condition: Improved Discharge Instructions: Hiccups Referrals: NO PRIMARY CARE PROVIDER (PCP) Signature Scribe Signature: No scribe Attestation: The note accurately reflects work and decisions made by me.Winston Jauregui MD 04/29/25 05:35 WINSTON JAUREGUI MD Apr 29, 2025 05:30
== END 2025-04-29 05:41 | disposition home or self-care (01) ==
LOC: ER 04:23
DX: R06.6 Hiccough (principal); F15.90 Other stimulant use, unspecified, uncomplicated; F11.90 Opioid use, unspecified, uncomplicated; Z86.14 Personal history of Methicillin resistant Staphylococcus aureus infection; Z79.899 Other long term (current) drug therapy; Z56.0 Unemployment, unspecified; Z98.890 Other specified postprocedural states
CPT/HCPCS: 99283